=== PATIENT | female | born 1970 | race Hispanic/Latino ===

== ENCOUNTER 2017-12-17 09:59 | Outpatient (CLI) | payer BC ==
--- NOTE | 2017-12-18 16:10 | Mammography Report ---
BILATERAL DIGITAL SCREENING MAMMOGRAM with CAD: 12/17/17 09:59:00 CLINICAL: Routine screening. COMPARISON:03/25/15 FINDINGS: The breasts are heterogeneously dense, which may obscure small masses. Bilateral asymmetries require additional imaging.No architectural distortion or suspicious calcifications. IMPRESSION: Bilateral asymmetries requiring further workup. BI-RADS CATEGORY: 0 -- Additional Imaging Evaluation Required RECOMMENDATION: Recall for bilateral true lateral and spot compression views and bilateral breast ultrasound if needed. ACR BI-RADS MAMMOGRAPHIC CODES: 0 = Needs additional imaging evaluation; 1 = Negative; 2 = Benign; 3 = Probably benign; 4 = Suspicious; 5 = Malignant; 6 = Known biopsy-proven malignancy COMMENT: 1. Dense breast tissue, i.e., adenosis, fibrocystic changes, etc., may obscure an underlying neoplasm. 2. Approximately 10% of cancers are not detected with mammography. 3. A negative mammography report should not delay biopsy if a clinically suspicious mass is present. COMMENT: Patient follow-up letters are generated via our [employer] application.
== END 2017-12-17 10:00 | disposition home or self-care (01) ==
LOC: SPVWC 09:59
PROVIDERS: ATTEND Obstetrics & Gynecology
DX: Z12.31 Encounter for screening mammogram for malignant neoplasm of breast (principal)
CPT/HCPCS: 77067

== ENCOUNTER 2018-01-24 10:59 | Outpatient (CLI) | payer BC ==
--- NOTE | 2018-01-24 11:38 | Mammography Report ---
Bilateral mammogram: Recall from bilateral asymmetries on recent screening exam. Spot CC and lateral compression imaging with lateral right compression images are obtained. The asymmetries identified on the recent screening exam are not persistent in the lateral projections. In the CC projection an area of mild asymmetry is still present but unchanged compared to an exam in 2015. Impression: Stable exam. Recommendation: Annual mammogram followup. BI-RADS CATEGORY: 1 = Negative ACR BI-RADS MAMMOGRAPHIC CODES: 0 = Needs additional imaging evaluation; 1 = Negative; 2 = Benign; 3 = Probably benign; 4 = Suspicious; 5 = Malignant; 6 = Known biopsy-proven malignancy COMMENT: 1. Dense breast tissue, i.e., adenosis, fibrocystic changes, etc., may obscure an underlying neoplasm. 2. Approximately 10% of cancers are not detected with mammography. 3. A negative mammography report should not delay biopsy if a clinically suspicious mass is present.
== END 2018-01-24 11:00 | disposition home or self-care (01) ==
LOC: SPVWC 10:59
PROVIDERS: ATTEND Obstetrics & Gynecology
DX: R92.8 Other abnormal and inconclusive findings on diagnostic imaging of breast (principal)
CPT/HCPCS: 77066

== ENCOUNTER 2019-07-25 12:52 | Outpatient (CLI) | payer BC ==
--- NOTE | 2019-07-28 14:45 | Mammography Report ---
DIGITAL SCREENING MAMMOGRAM WITH CAD, 07/25/2019 INDICATION: Routine screening mammography. TECHNIQUE: Digital bilateral 2D mammography was obtained in the craniocaudal and mediolateral obliq ue projections. This examination was interpreted with the benefit of Computer-Aided Detection analysi s. COMPARISON: 01/24/2018, 12/17/2017 and 03/25/2015 FINDINGS: Breast Density: The breasts are heterogeneously dense, which may obscure small masses. A left upper outer parenchymal asymmetry is more prominent than on the last exam and requires additio nal imaging. No architectural distortion or suspicious calcifications of the left breast. There is no evidence of dominant mass, suspicious calcifications or architectural distortion in the right breast . IMPRESSION: Left focal asymmetry requiring additional imaging. Recommend recall for left spot magnifi cation views and left upper outer targeted breast ultrasound. Follow up recommendation: Special View: Mag Category 0: Incomplete. Needs additional imaging evaluation and/or prior mammograms for comparison. A "normal" or negative report should not discourage follow up or biopsy of a clinically significant f inding. A written summary of these findings will be mailed to the patient. The patient will be entered into a mammography reporting system which will generate a reminder letter for the patient's next appointmen t at the appropriate interval. The [employer] recommends yearly mammograms starting at age 40 and continuing as l katerina as a woman is in good health. Breast MRI is recommended for women with an approximate 20-25% or greater lifetime risk of breast cancer, including women with a strong family history of breast or ova alexis cancer or who have been treated for Hodgkin's disease. Signer Name: Ignacio Nunes MD Signed: 07/28/2019 2:41 PM Workstation Name: [id number]
== END 2019-07-25 12:53 | disposition home or self-care (01) ==
LOC: SPVWC 12:52
PROVIDERS: ATTEND Obstetrics & Gynecology
DX: Z12.31 Encounter for screening mammogram for malignant neoplasm of breast (principal)
CPT/HCPCS: 77067

== ENCOUNTER 2020-06-22 08:55 | Outpatient (CLI) | payer BC ==
--- NOTE | 2020-06-22 10:39 | Ultrasound Report ---
LEFT DIGITAL DIAGNOSTIC MAMMOGRAM WITH CAD 06/22/2020 LEFT LIMITED BREAST ULTRASOUND INDICATION: Abnormal screening mammogram. Screening recall of the left breast. TECHNIQUE: Digital left mammographic imaging was performed. Spot compression views were obtained. Li mited ultrasound was performed. This examination was interpreted with the benefit of Computer-Aided D etection (CAD) analysis. COMPARISON: Screening mammogram, 07/25/2019 and 01/24/2018 and 12/17/2017 FINDINGS: Breast Density: The breasts are heterogeneously dense, which may obscure small masses. MAMMOGRAPHIC FINDINGS: Spot compression views of the upper outer left breast demonstrate a 1.7 cm foc al rounded density at the 1:00 position middle depth. ULTRASOUND FINDINGS: Targeted ultrasound evaluation was performed of the area of interest. Sonograp hic evaluation of the left breast at the 1:00 position 7 cm from the nipple demonstrates an oval alethea d mass with indistinct margins measuring 1.7 x 0.6 cm. This corresponds to the mammographic density. There is no significant associated vascularity. IMPRESSION: Follow up recommendation: Biopsy BI-RADS Category 4: Suspicious for Malignancy. Left breast mass at the 1:00 position as described wh ich is moderately suspicious for malignancy. Surgical consultation and ultrasound-guided biopsy are r ecommended. A "normal" or negative report should not discourage follow up or biopsy of a clinically significant f inding. A written summary of these findings will be mailed to the patient. The patient will be entered into a mammography reporting system which will generate a reminder letter for the patient's next appointmen t at the appropriate interval. According to the [employer], yearly mammograms are recommended starting at age 40 and continuing as long as a woman is in good health. Breast MRI is recommended for women with an derrell roximately 20-25% or greater lifetime risk of breast cancer, including women with a strong family his tory of breast or ovarian cancer and women who have been treated for Hodgkin's disease. Signer Name: Carley Ferraro MD Signed: 06/22/2020 10:34 AM Workstation Name: [id number]
== END 2020-06-22 08:56 | disposition home or self-care (01) ==
LOC: SPVWC 08:55
PROVIDERS: ATTEND Obstetrics & Gynecology
DX: R92.8 Other abnormal and inconclusive findings on diagnostic imaging of breast (principal)

== ENCOUNTER 2020-06-30 08:50 | Outpatient (CLI) | payer BC ==
--- NOTE | 2020-06-30 10:16 | Mammography Report ---
DIGITAL DIAGNOSTIC MAMMOGRAM WITH CAD, -- 06/30/2020 INDICATION: Postbiopsy mammogram following left breast ultrasound-guided biopsy. TECHNIQUE: Digital left mammographic imaging was performed. This examination was interpreted with the benefit of Computer-aided Detection analysis. COMPARISON: Prior mammogram and left breast ultrasound 06/22/2020 FINDINGS: Breast Density: The breasts are heterogeneously dense, which may obscure small masses. Postbiopsy mammogram reveals a biopsy clip appropriately positioned at the site of previously describ ed rounded density in the 1:00 position of the left breast, middle depth. IMPRESSION: 1. Appropriately positioned biopsy clip following left breast ultrasound-guided biopsy. Pathology ulices chou. Follow up recommendation: No recall. Post biopsy imaging. A "normal" or negative report should not discourage follow up or biopsy of a clinically significant f inding. A written summary of these findings will be mailed to the patient. The patient will be entered into a mammography reporting system which will generate a reminder letter for the patient's next appointmen t at the appropriate interval. According to the [employer], yearly mammograms are recommended starting at age 40 and continuing as long as a woman is in good health. Breast MRI is recommended for women with an derrell roximately 20-25% or greater lifetime risk of breast cancer, including women with a strong family his tory of breast or ovarian cancer and women who have been treated for Hodgkin's disease. Signer Name: Jenni Tamez MD Signed: 06/30/2020 10:11 AM Workstation Name: [id number]
--- NOTE | 2020-06-30 12:01 | Ultrasound Report ---
LEFT BREAST ULTRASOUND GUIDED BIOPSY The procedure was explained to the patient and informed consent obtained. PROCEDURE: Using sonographic guidance, the lesion in the 1:00 position of the left breast was identi fied. 5 mL of 1% buffered lidocaine and 5 mL 1% lidocaine with epinephrine was administered and a sm all skin trino was made with a scalpel. Using a 14 gauge biopsy device, multiple core biopsy samples w ere obtained. The specimens were placed in a 10% formalin solution and sent for histologic analysis. A radio opaque marker clip was placed at the biopsy site. Pressure was held on the biopsy site utilizing the sterile 4 x 4 gauze until all bleeding subsided. A gauze dressing was placed over the biopsy site to provide a pressure dressing. Postbiopsy instructio ns were reviewed with the patient and a copy given to her. No immediate complications occurred. INTERPRETATION: Images made real-time during the procedure demonstrate the biopsy device to be appro priately centered within the lesion. Impression: Successful left breast ultrasound-guided biopsy. Pathology pending. Signer Name: Jenni Tamez MD Signed: 06/30/2020 11:56 AM Workstation Name: [id number]
== END 2020-06-30 08:51 | disposition home or self-care (01) ==
LOC: SPVWC 08:50
PROVIDERS: ATTEND Obstetrics & Gynecology
DX: N63.21 Unspecified lump in the left breast, upper outer quadrant (principal); R92.8 Other abnormal and inconclusive findings on diagnostic imaging of breast
CPT/HCPCS: 88305